=== PATIENT | male | born 1950 | race African-American/Black ===

== ENCOUNTER 2017-10-26 07:52 | Day surgery (SDC) | payer MEDICARE ==
[2017-10-25 14:11] VITALS: BMI 25.8
[2017-10-26] MEDS ORDERED: Lidocaine 1% PF 5 ML VIAL ONE (15:19)
[2017-10-26] MEDS ORDERED: PROPOFOL 200 MG/20 ML VIAL ONE (15:19)
--- NOTE | 2017-10-26 16:46 | OP ---
DATE OF PROCEDURE: 10/26/2017 PROCEDURE PERFORMED: Colonoscopy with polypectomy. PREPROCEDURE DIAGNOSIS: Colorectal cancer screening. POSTOPERATIVE DIAGNOSES: Seven polyps removed from the ascending, transverse, and sigmoid colon rang ing in size from 2-7 mm in size, all sessile to semi-pedunculated, removed by hot snare polypectomy a nd submitted to Pathology from the ascending, transverse, and sigmoid. RECOMMENDATIONS: 1. Await histopathology. 2. Repeat colonoscopy in 3 years. ANESTHESIA: TIVA. PROCEDURE IN DETAIL: After the patient was informed of the risks, benefits, possible complications o f endoscopy including perforation, bleeding, reaction to medication and aspiration, informed consent was obtained. The patient brought to the endoscopy suite where he was sedated in a gradual fashion. Once he was comfortable, a rectal exam was performed. The normal endoscope was advanced in the anal canal, through the colon to the cecum which was identified by the ileocecal valve and appendiceal or ifice. The scope was then slowly removed. The prep was fairly good. We have to irrigate with about 500 mL of sterile water. Polyps were identified in the ascending, transverse, and 2 were found in t he sigmoid colon of 7 total. These were all removed by hot snare polypectomy and submitted to Pathol cecilia. Retroflexed views in the rectum were normal. The scope was then removed. The patient tolerate d the procedure well with no complications.
== END 2017-10-26 10:25 | disposition home or self-care (01) ==
LOC: SDC 07:52
PROVIDERS: ATTEND Internal Medicine Gastroenterology
PROC: 0DBK8ZX Excision of Ascending Colon, Via Natural or Artificial Opening Endoscopic, Diagnostic (ICD-10-PCS; principal; 2017-10-26)
PROC: 0DBL8ZX Excision of Transverse Colon, Via Natural or Artificial Opening Endoscopic, Diagnostic (ICD-10-PCS; 2017-10-26)
PROC: 0DBN8ZX Excision of Sigmoid Colon, Via Natural or Artificial Opening Endoscopic, Diagnostic (ICD-10-PCS; 2017-10-26)
DX: Z12.11 Encounter for screening for malignant neoplasm of colon (principal); D12.2 Benign neoplasm of ascending colon; D12.5 Benign neoplasm of sigmoid colon; K63.5 Polyp of colon; I25.10 Atherosclerotic heart disease of native coronary artery without angina pectoris; J45.909 Unspecified asthma, uncomplicated; E78.00 Pure hypercholesterolemia, unspecified; E11.9 Type 2 diabetes mellitus without complications; I10 Essential (primary) hypertension; J44.9 Chronic obstructive pulmonary disease, unspecified; Z79.82 Long term (current) use of aspirin; Z79.899 Other long term (current) drug therapy
CPT/HCPCS: 36416; 88305; J2001; J2704

== ENCOUNTER 2018-07-16 22:27 | Inpatient (IN) | payer MEDICARE ==
[2018-07-16] MEDS ORDERED: Albuterol Sulfate 2.5 mg/3 ml Neb ONE (22:37)
[2018-07-16] MEDS ORDERED: Albuterol Sulfate 2.5 mg/0.5 ml Neb ONE (22:37)
--- NOTE | 2018-07-16 22:48 | RAD ---
Portable frontal chest radiograph: 07/16/2018 COMPARISON: 03/31/2014 HISTORY: Shortness of breath FINDINGS: Stable midline sternotomy wires. Stable mild increased linear interstitial density. No pneu mothorax or pleural fluid. No lobar consolidation or alveolar edema. IMPRESSION: No acute findings.
[2018-07-16 22:57] LABS: #Basophils 0.1 thou/uL (0.0-0.2); #Eosinphils 1.3 thou/uL (0.0-0.7); #Lymphocytes 2.2 thou/uL (1.20-3.40); #Monocytes 0.7 thou/uL (0.11-0.59); #Neutrophils 6.5 thou/uL (1.40-6.50); %Basophils 0.6 % (0.0-1.0); %Eosinophils 12.3 % (0.0-10.0); %Lymphocytes 20.4 % (21.0-51.0); %Monocytes 6.4 % (0.0-10.0); %Neutrophils 60.3 % (42.0-75.0); Hemoglobin 13.1 g/dL (14.0-18.0); Mean Corpuscular HGB CONC 32.9 g/dL (32.0-36.0); Mean Corpuscular Hemoglobin 27.9 pg (27.0-31.0); Mean Corpuscular Volume 84.8 fL (78.0-98.0); Mean Platelet Volume 8.2 fL (7.4-10.4); Platelet Count 234 thou/uL (130-400); RBC Distribution Width 12.9 % (11.5-14.5); Red Blood Cell (RBC) Count 4.71 mill/uL (4.70-6.10); White Blood Cell (WBC) Count 10.7 thou/uL (4.8-10.8)
[2018-07-16] MEDS ORDERED: cloNIDine 0.1 MG TAB ONE (23:10)
[2018-07-16 23:18] LABS: ALT (SGPT) 19 U/L (8-55); AST (SGOT) 23 U/L (5-34); Albumin 4.5 g/dL (3.4-4.8); Alkaline Phosphatase 109 U/L (40-150); Anion Gap 17 mmol/L (10-20); BUN (Urea Nitrogen) 20 mg/dL (8.4-25.7); Bilirubin, Total 0.3 mg/dL (0.2-1.2); Calc. Creatinine Clearance 0 mL/min (70-130); Calcium 9.4 mg/dL (7.8-10.44); Carbon Dioxide 24 mmol/L (23-31); Chloride 101 mmol/L (98-107); Estimated GFR-MDRD 78; Globulin 3.1 g/dL (2.4-3.5); Glucose 257 mg/dL (80-115); Protein, Total 7.6 g/dL (5.8-8.1); Sodium 138 mmol/L (136-145)
[2018-07-17] MEDS ORDERED: Sodium Chloride 0.65% Nasal 44 ML BOT EA NARE PRN (01:07)
[2018-07-17] MEDS ORDERED: Nitroglycerin 0.4 MG TAB (25 Tab Bottle) SL PRN (01:07)
[2018-07-17] MEDS ORDERED: HYDROcodone/Acetaminophen 5/325 mg Tablet PO PRN (01:07)
[2018-07-17] MEDS ORDERED: Senokot S 8.6-50 MG TAB PO PRN (01:07)
[2018-07-17] MEDS ORDERED: Ondansetron PF 4 MG/2 ML Vial IVP PRN ×2 (01:07)
[2018-07-17] MEDS ORDERED: Bisacodyl 10 MG SUPP PR PRN (01:07)
[2018-07-17] MEDS ORDERED: Diabetic Tussin 200 MG/10 ML UDCUP PO PRN (01:07)
[2018-07-17] MEDS ORDERED: Bisacodyl 5 MG TAB PO PRN (01:07)
[2018-07-17] MEDS ORDERED: hydrALAZINE 20 MG/ML VIAL SLOW IVP PRN (01:07)
[2018-07-17] MEDS ORDERED: cloNIDine 0.1 MG TAB PO PRN (01:07)
[2018-07-17] MEDS ORDERED: Calcium Carbonate 500 MG ChewTAB PO PRN ×2 (01:07)
[2018-07-17] MEDS ORDERED: Benzonatate 100 MG CAP PO PRN (01:07)
[2018-07-17] MEDS ORDERED: Acetaminophen 325 MG TAB PO PRN (01:07)
[2018-07-17 01:28] VITALS: BMI 25.9
[2018-07-17] MEDS ORDERED: traMADol HCl 50 MG TAB PO PRN (02:08)
[2018-07-17] MEDS ORDERED: Dextrose 5% in Water 1,000 ML IV PRN (02:28)
[2018-07-17] MEDS ORDERED: Dextrose 50% Abboject 50 ML SYRINGE SLOW IVP PRN (02:28)
[2018-07-17] MEDS ORDERED: HumaLOG 300 UNITS/3 ML VIAL SC PRN (02:28)
--- NOTE | 2018-07-17 03:41 | HP ---
PRIMARY CARE PHYSICIAN: Clinic. Dr. Andrews Henry CHIEF COMPLAINT: Worsening shortness of breath. HISTORY OF PRESENTING ILLNESS: Mr. Lemus is a pleasant 67-year-old male with past medical history of coronary artery disease, COPD versus asthma, not on home oxygen and history of diabetes and prostate cancer, who presented to the emergency room with above-mentioned complaint. History is mainly obtained by the patient himself, who is having a little hard time giving history because of the BiPAP mask and because of shortness of breath with long conversation. Electronic medical records have been reviewed in detail. Mr. Lemus reports that he has been having shortness of breath for the last 2 or 3 days, but it got worse last night. He suspects that he was exposed to some allergen and started as a runny nose and then his eyes started to water. He started to have more and more shortness of breath despite using his home inhalers and nebulizers. He has been having some nonproductive cough, but no fever, chills, or chest pain. He called the EMS and came to the emergency room. Per the EMS, the patient was having diffuse wheezing and his saturation was 92% on room air. He was given 6 nebulizers, one dose of Solu-Medrol IV 125 mg as well as magnesium and epi en route. The patient was on BiPAP upon presentation to the ER. Upon presentation to our emergency room, he was found to be in respiratory distress with use of accessory muscles. He was hypertensive with a blood pressure of 201/141. He was found to have diffuse wheezing on ER physician's examination. A 12-lead EKG shows sinus tachycardia. He was given clonidine and albuterol nebulizer and was continued on BiPAP and Medicine Team was consulted for admission to [facility]. The patient is currently being admitted to [facility] with presumptive diagnosis of COPD exacerbation. Chest x-ray did not show any evidence of infiltrate, edema, or effusion. PAST MEDICAL HISTORY: 1. History of COPD versus asthma. The patient follows up with Dr. Bernabe. 2. Coronary artery disease, status post stenting. The patient follows up with Dr. Avial. 3. Diabetes mellitus, type 2. 4. Hypertension. 5. Dyslipidemia. 6. History of prostate cancer. 7. Chronic low back pain. PAST SURGICAL HISTORY: 1. CABG in 1999. 2. CABG x4 in 2013. PSYCHIATRIC HISTORY: No anxiety or depression reviewed with the patient. SOCIAL HISTORY: He lives at home with his son. He drinks alcohol socially. No history of smoking or illicit drug abuse. FAMILY HISTORY: Mother had hypertension. Brother from some sort of cancer. No family history of coronary artery disease or sudden cardiac . ALLERGIES: NO KNOWN MEDICATION ALLERGIES. HOME MEDICATIONS: 1. Tramadol q.i.d. p.r.n. 2. Actos 45 mg daily. 3. Omeprazole 20 mg daily. 4. Lisinopril 5 mg daily. 5. Levemir 30 units b.i.d. 6. Gabapentin 300 t.i.d. 7. Budesonide nebs 0.5 b.i.d. 8. Brovana 15 mcg neb b.i.d. 9. Atorvastatin 80 mg at bedtime. 10. Aspirin 81 mg daily. 11. Amlodipine 10 mg p.o. daily. REVIEW OF SYSTEMS: A 14-point review of system is done. It is negative except for those mentioned in the history and physical. CODE STATUS: Full code discussed with the patient. PHYSICAL EXAMINATION: VITAL SIGNS: Most recent vital signs; temperature 98.2, heart rate 110, respirations 23, blood pressure 149/73, and saturating 100% on BiPAP. GENERAL: No acute distress. He is awake, alert, and oriented x3. He gets easily winded with conversation. HEENT: BiPAP mask is on. Head is normocephalic and atraumatic. Pupils are equal and reactive to light and accommodation. Extraocular movements are intact. NECK: Supple without any lymphadenopathy, JVD, or bruit. CHEST: Show diffuse bilateral wheezing without any rhonchi or crackles. He is tachycardic with regular rate and rhythm without any significant murmurs. ABDOMEN: Soft, nontender, and nondistended. Positive bowel sounds. EXTREMITIES: Free of any cyanosis, clubbing, or edema. NEUROLOGIC: Nonfocal. SKIN: Free of any rashes or bruises. Feels warm and dry to touch. PSYCHIATRIC: Normal affect. LABORATORY STUDIES: Lab examination is unremarkable. Serum chemistries unremarkable. Blood sugar 257. Cardiac enzymes within normal limit. BNP 81. DIAGNOSTIC DATA: Chest x-ray by my review shows no evidence of pleural effusion, edema, or infiltrate. 12-lead EKG by my review shows normal sinus rhythm at 128 beats per minute without any acute ST or T-wave changes. IMPRESSION AND PLAN: 1. Acute hypoxic respiratory failure. This is secondary to chronic obstructive pulmonary disease exacerbation. The patient will be continued on BiPAP for now and we will provide symptomatic and supportive care. We will also add IV steroids as well as scheduled and p.r.n. nebulizer along with Dulera and continue BiPAP for now. We will request consultation with Pulmonary Medicine in the morning as well. The patient is oxygenating much better, but he still has diffuse wheezes. We will add the empiric antibiotics for chronic obstructive pulmonary disease exacerbation, namely Augmentin for now. We will also add Spiriva given his history of asthma. 2. Hypertensive urgency. His blood pressure is under much better control for now. We will restart his home medications, off amlodipine and lisinopril. Add p.r.n. antihypertensives and monitor closely. 3. Diabetes mellitus. We will hold the Actos for now because of poor oral intake. We will put him on sliding scale insulin. Continue with his long-acting insulin in the form of Levemir. Accu-Cheks a.c. and at bedtime will be done. 4. History of coronary artery disease, currently stable. We will restart his aspirin, atorvastatin, and lisinopril. Avoid any beta blockers because of chronic obstructive pulmonary disease. 5. Add deep venous thrombosis and gastrointestinal prophylaxis. 6. Add p.r.n. medications. 7. Code status, full code discussed with the patient. DISPOSITION: Mr. Lemus is currently being admitted to the hospital with acute hypoxic respiratory failure due to COPD exacerbation. Estimated length of stay at this time is 2 to 3 midnights. He is currently on BiPAP, admitted to [facility]. Further management will depend upon his clinical course. Job ID: [id number]
[2018-07-17] MEDS: methylPREDNISolone Sod Succ 40 MG VIAL IVP SCH ×3 (05:09→17:35)
[2018-07-17 06:05] LABS: Anion Gap 16 mmol/L (10-20); BUN (Urea Nitrogen) 22 mg/dL (8.4-25.7); Calc. Creatinine Clearance 69 mL/min (70-130); Carbon Dioxide 24 mmol/L (23-31); Chloride 101 mmol/L (98-107); Estimated GFR-MDRD 75; Glucose 359 mg/dL (80-115); Potassium 4.8 mmol/L (3.5-5.1); Sodium 136 mmol/L (136-145)
[2018-07-17] MEDS ORDERED: Mometasone/Formoterol 120 PUFF INHALER INH SCH (06:30)
[2018-07-17] MEDS: HumaLOG 300 UNITS/3 ML VIAL SC PRN ×3 (06:33→17:35)
[2018-07-17] MEDS ORDERED: Spiriva 18 MCG CAP (Box of 5 Caps) INH SCH (07:00)
[2018-07-17] MEDS ORDERED: Lisinopril 5 MG TAB PO SCH (09:00)
[2018-07-17] MEDS ORDERED: Non-Formulary Item 1 EACH (Levemir Flexpen [Levemir Flexpen] 30 UNIT) SC SCH (09:00)
[2018-07-17] MEDS: Amoxicillin/Potassium Clav 875 MG TAB PO SCH ×2 (09:20→21:14)
[2018-07-17] MEDS: Famotidine 20 MG TAB PO SCH ×2 (09:21→21:14)
[2018-07-17] MEDS: Gabapentin 300 MG CAP PO SCH ×3 (09:21→21:14)
[2018-07-17] MEDS: Insulin Glargine 30 UNITS in Pre-Filled Syringe 1 EACH SC SCH ×2 (09:21→21:14)
[2018-07-17] MEDS: Amlodipine 10 MG TAB PO SCH (09:21)
[2018-07-17] MEDS: Aspirin 81 mg Enteric Coated Tablet PO SCH (09:21)
[2018-07-17] MEDS: Enoxaparin Sodium 40 MG/0.4 ML SYRINGE SC SCH (09:22)
--- NOTE | 2018-07-17 11:35 | CON ---
DATE OF CONSULTATION: 07/17/2018 HISTORY OF PRESENT ILLNESS: Shoaib Lemus is a 67-year-old gentleman, who sees Dr. Bernabe for COPD, though he has never smoked, he used to work in a power plant, who states over the last several days, his eyes were itching, running, suddenly became short of breath, unresponsive to his usual medication. He is not seeing Dr. Bernabe for a period of time. Prior to his particular illness with wheezing, he said he was able to function quite well, walking a fair distance. He was given Solu-Medrol 125 neb treatments, magnesium, epinephrine. Apparently, he was wheezing upon arrival. He was eventually placed on noninvasive ventilation. He is doing much better. PAST MEDICAL HISTORY: 1. Chronic asthma associated with COPD. 2. Hypertension. 3. Coronary artery disease. 4. History of prostate cancer. 5. History of diabetes. 6. Hyperlipidemia. 7. Hypertension. PAST SURGICAL HISTORY: Including stent, bypass surgery. ALCOHOL: None. TOBACCO: Never. SOCIAL HISTORY: He worked for a power plant. HOME MEDICINES: Has included; 1. Tramadol. 2. Actos 45. 3. Omeprazole 20. 4. Lisinopril 5. 5. Levemir 30 b.i.d. 6. Gabapentin 300 three times a day. 7. He has Pulmicort neb solution. 8. Brovana 15 twice a day. ALLERGIES: NONE. REVIEW OF SYSTEMS: Ten-point negative. PHYSICAL EXAMINATION: VITAL SIGNS: Blood pressure 112/86, temperature 97, sats 100% on 2 L, respiratory rate 20. GENERAL: Awake, alert, responsive. CHEST: Decreased breath sounds. No wheezing. CARDIAC: Normal S1 and S2. No gallops. ABDOMEN: Soft without any masses. LABORATORY DATA: His lab is pertinent for glucose of 321. White count is unremarkable. DIAGNOSTIC DATA: X-ray was normal. IMPRESSION AND PLAN: 1. Chronic asthma. 2. Chronic obstructive pulmonary disease exacerbation. 3. Coronary artery disease. 4. Diabetes. 5. Prostate cancer. Appears to have improved substantially. Continue steroids, neb treatment. We will notify Dr. Bernabe. Consultation note, 70 minutes, 50% direct patient care. Job ID: [id number]
[2018-07-17] MEDS: Mometasone/Formoterol 120 PUFF INHALER INH SCH (19:34)
[2018-07-17] MEDS: Atorvastatin Calcium 40 MG TAB PO SCH (21:14)
[2018-07-18] MEDS: methylPREDNISolone Sod Succ 40 MG VIAL IVP SCH ×4 (00:12→16:58)
[2018-07-18] MEDS: HumaLOG 300 UNITS/3 ML VIAL SC PRN ×2 (05:59→11:27)
[2018-07-18] MEDS: Mometasone/Formoterol 120 PUFF INHALER INH SCH ×2 (07:56→18:18)
[2018-07-18] MEDS: Amlodipine 10 MG TAB PO SCH (10:09)
[2018-07-18] MEDS: Amoxicillin/Potassium Clav 875 MG TAB PO SCH ×2 (10:09→20:40)
[2018-07-18] MEDS: Enoxaparin Sodium 40 MG/0.4 ML SYRINGE SC SCH (10:10)
[2018-07-18] MEDS: Aspirin 81 mg Enteric Coated Tablet PO SCH (10:10)
[2018-07-18] MEDS: Gabapentin 300 MG CAP PO SCH ×3 (10:10→20:40)
[2018-07-18] MEDS: Famotidine 20 MG TAB PO SCH ×2 (10:10→20:40)
--- NOTE | 2018-07-18 10:24 | PRG ---
DATE OF SERVICE: 07/18/2018 SUBJECTIVE: The patient is seen and examined at bedside. He is doing significantly better. His appetite is good. He moves his bowels daily. His shortness of breath improved. OBJECTIVE: VITAL SIGNS: Blood pressure is 163/113, temperature is 96.2, pulse is 86, respiratory rate is 16, O2 saturation is 97% on 2 L by nasal cannula. HEENT: His head is atraumatic and normocephalic. Eyes are PERRLA. Sclerae are nonicteric. Oral mucosa is moist. NECK: Supple. LUNGS: Wheezing and rales bilaterally. At the back of both lungs, sounds much better. HEART: S1, S2 normal. No S3. No S4. ABDOMEN: Soft, nontender, nondistended. EXTREMITIES: No clubbing, cyanosis, or edema. NEUROLOGICAL: He is alert and oriented x4. There is no any motor or sensory deficit present. Cranial nerves are intact. LABORATORY DATA: Glycemia is ranging from 226 to 329. IMPRESSION: 1. Acute exacerbation of chronic obstructive pulmonary disease. 2. Uncontrolled diabetes mellitus, mostly secondary to IV drug and steroid use. 3. Hypertensive urgency. This is still an issue. We will try to adjust some medications to get the blood pressure under control. 4. History of coronary artery disease, chronic, stable on aspirin, atorvastatin, and lisinopril. PLAN: Continue his Augmentin. Continue his IV steroids. Continue DuoNeb's. Intensify his blood pressure control. Job ID: [id number]
[2018-07-18] MEDS: Lisinopril 20 MG TAB PO SCH (10:25)
[2018-07-18] MEDS: Pioglitazone HCl 45 MG TAB PO SCH (11:26)
[2018-07-18] MEDS: Insulin Glargine 40 UNITS in Pre-Filled Syringe 1 EACH SC SCH (11:26)
--- NOTE | 2018-07-18 14:32 | PRG ---
DATE OF SERVICE: 07/18/2018 SUBJECTIVE: Shoaib Lemus is in no distress. He said he had an appointment coming up to see me here in the near future. He has not been seen in the office in a while. OBJECTIVE: VITAL SIGNS: Heart rate is 91, blood pressure 151/91, respiratory rate is 23, oximetry is 100%. He says he is feeling much better than when he was admitted. LUNGS: Still remarkable for diffuse mild wheezes. HEART: Regular rhythm. S1 and S2 are normal. ABDOMEN: Soft and nontender. EXTREMITIES: Without asymmetry or edema. IMPRESSION: 1. Chronic obstructive pulmonary disease exacerbation, slowly improving. 2. Diabetes. 3. Hypertension. 4. History of coronary artery disease. PLAN: Continue antibiotics, steroids, and nebulized treatments. We will continue to follow the other physicians caring for him. Job ID: [id number] MTDD
[2018-07-18] MEDS: Budesonide 0.5 MG/2 ML NEB NEB SCH (18:18)
[2018-07-18] MEDS: Atorvastatin Calcium 40 MG TAB PO SCH (20:40)
[2018-07-18] MEDS ORDERED: Insulin Glargine 40 UNITS in Pre-Filled Syringe 1 EACH SC SCH (21:00)
[2018-07-19] MEDS: methylPREDNISolone Sod Succ 40 MG VIAL IVP SCH ×2 (00:07→06:12)
[2018-07-19] MEDS: Budesonide 0.5 MG/2 ML NEB NEB SCH (07:27)
[2018-07-19] MEDS: Mometasone/Formoterol 120 PUFF INHALER INH SCH (07:28)
[2018-07-19] MEDS: Insulin Glargine 40 UNITS in Pre-Filled Syringe 1 EACH SC SCH (08:22)
[2018-07-19] MEDS: Aspirin 81 mg Enteric Coated Tablet PO SCH (08:23)
[2018-07-19] MEDS: Amlodipine 10 MG TAB PO SCH (08:23)
[2018-07-19] MEDS: Pioglitazone HCl 45 MG TAB PO SCH (08:23)
[2018-07-19] MEDS: Lisinopril 20 MG TAB PO SCH (08:23)
[2018-07-19] MEDS: Amoxicillin/Potassium Clav 875 MG TAB PO SCH (08:23)
[2018-07-19] MEDS: Famotidine 20 MG TAB PO SCH (08:24)
[2018-07-19] MEDS: Enoxaparin Sodium 40 MG/0.4 ML SYRINGE SC SCH (08:24)
[2018-07-19] MEDS: Gabapentin 300 MG CAP PO SCH (08:24)
[2018-07-19 08:27] VITALS: BP 112/86
[2018-07-19 11:19] VITALS: TEMP 97.5
--- NOTE | 2018-07-19 13:45 | PRG ---
DATE OF SERVICE: 07/19/2018 SUBJECTIVE: Shoaib Lemus says he feels close to his baseline. He is in no distress. He wants to go home. OBJECTIVE: VITAL SIGNS: He is afebrile. Blood pressure 138/83, heart rate 78, and respiratory rate 18. LUNGS: Clear. HEART: Regular rhythm. ABDOMEN: Soft and nontender. EXTREMITIES: Without edema. LABORATORY DATA: White count has not been repeated since admission. Glucoses have been in the 125 to 293 range. IMPRESSION: 1. Chronic obstructive pulmonary disease exacerbation, clinically improving. 2. Diabetes. 3. Hypertension. 4. History of coronary artery disease. He will follow up with me in 2 weeks. He will be discharged on a 2-week steroid taper, antibiotic (Augmentin) plus ipratropium and albuterol to use 4 times a day and his nebulizer. He is chronically on Brovana and budesonide, but after exacerbation, we probably should continue to go with breathing treatments 4 times a day and the steroid taper as well as continuing the antibiotics. Job ID: [id number]
--- NOTE | 2018-07-19 20:21 | DIS ---
DATE OF ADMISSION: 07/17/2018 DATE OF DISCHARGE: 07/19/2018 FINAL DIAGNOSES: 1. Acute exacerbation of chronic obstructive pulmonary disease. 2. Uncontrolled diabetes mellitus. 3. Hypertensive urgency. 4. History of coronary artery disease. CONSULTANTS: 1. Dr. Bernabe, Pulmonary Service. 2. Dr. Lynch, Pulmonary Service. HOSPITAL COURSE: The patient is a 67-year-old male, who presented with exacerbation of chronic obstructive pulmonary disease. He noticed increased worsening of shortness of breath going on for approximately 3 days. It started as a runny nose and his eyes started watering, productive cough. No fever. No chills. No chest pain. He was taken to the emergency room by EMS and was found to have pulse oximetry around 92% on room air. He was started on IV Solu-Medrol and nebulizers and while in the ER, he was placed on BiPAP. His blood pressure was up to 200 systolic and 140 diastolic. EKG showed sinus tachycardia. He was given multiple nebulized DuoNeb and got admitted to [facility]. Chest x-ray did not show any evidence of infiltrate or edema or effusion. At the time of admission, his labs were unremarkable. Blood sugar was 257 and cardiac enzymes were within normal limits. BNP was 81. He was started on Augmentin with long-acting insulin and short-acting according to sliding scale and Accu-Cheks, which were done before meals and at bedtime. He was seen by Dr. Lynch for pulmonary consultation. He recommended to continue the current regimen. He improved very quickly. His pulmonary status is improved to the point that he can be discharged home safely. His temperature was 97.5, blood pressure 138/83, heart rate 78, respirations 20, and O2 saturation is 98% on room air. His lungs does not present with any wheezing today. Heart, S1 and S2 normal. Abdomen is soft and nontender. Extremities; no clubbing, cyanosis, or edema. He is discharged home with recommendation to stay on 2000 calories ADA diet. Activities as tolerated. MEDICATIONS: Medications at the time of discharge: 1. He was switched to oral prednisone and he will take 40 mg daily x4 days, then 20 mg daily x8 days, then 10 mg daily x8 days. 2. He will have prescription for DuoNeb for one month. 3. He will also get prescription for Augmentin 875 twice a day for the next 10 days. 4. He will continue on his aspirin 81 mg once a day. 5. Amlodipine 10 mg once a day. 6. Atorvastatin 80 mg once a day. 7. Budesonide . 8. Gabapentin 300 mg 3 times a day. 9. He will continue his regular dose of insulin glargine, which I believe 30 units twice a day. 10. He will continue also lisinopril 5 mg once a day. 11. Omeprazole 20 mg once a day. 12. Actos 45 mg once a day. 13. Tramadol 50 mg p.o. q.i.d. p.r.n. as needed. FOLLOWUP: He will follow up with his primary doctor in [address] Bernabe in 1 month. TIME SPENT: Discharge time is less than 30 minutes. Job ID: [id number]
== END 2018-07-19 13:28 | disposition home or self-care (01) | DRG 189 ==
LOC: ERS 22:27 → IMCU/EMU 07-17 01:16
PROVIDERS: ADMIT Internal Medicine; ATTEND Internal Medicine
PROC: 5A09457 Assistance with Respiratory Ventilation, 24-96 Consecutive Hours, Continuous Positive Airway Pressure (ICD-10-PCS; principal; 2018-07-17)
DX: J96.01 Acute respiratory failure with hypoxia (principal); J44.1 Chronic obstructive pulmonary disease with (acute) exacerbation; I25.10 Atherosclerotic heart disease of native coronary artery without angina pectoris; I10 Essential (primary) hypertension; I16.0 Hypertensive urgency; E78.5 Hyperlipidemia, unspecified; E11.65 Type 2 diabetes mellitus with hyperglycemia; G89.29 Other chronic pain; M54.9 Dorsalgia, unspecified; Z95.1 Presence of aortocoronary bypass graft; Z79.899 Other long term (current) drug therapy; Z79.82 Long term (current) use of aspirin; Z79.4 Long term (current) use of insulin; Z79.51 Long term (current) use of inhaled steroids; Z85.46 Personal history of malignant neoplasm of prostate
CPT/HCPCS: 36415; 36416; 71045; 80048; 80053; 83880; 84484; 85025; 93005; 94644; 94660; 94664; J1650; J1825; J2920; J7611; J7620; J7626

== ENCOUNTER 2018-09-16 09:31 | Outpatient (CLI) | payer MEDICARE ==
--- NOTE | 2018-09-16 09:47 | RAD ---
EXAM: Chest 2 views: HISTORY: Dyspnea COMPARISON: None. FINDINGS: There is a normal-sized cardiomediastinal silhouette. The patient is status post sternotomy. There is no evidence of consolidation, mass, or pleural effusion. The bones are unremarkable. IMPRESSION: No evidence of acute cardiopulmonary disease
== END 2018-09-16 09:32 | disposition home or self-care (01) ==
LOC: RAD 09:31
PROVIDERS: ATTEND Internal Medicine Critical Care Medicine
DX: R06.00 Dyspnea, unspecified (principal)
CPT/HCPCS: 71046

== ENCOUNTER 2023-03-05 11:03 | Inpatient (IN) | payer MEDICARE ==
[2023-03-05] MEDS ORDERED: Dexamethasone 10 MG/ML VIAL ONE (11:30)
[2023-03-05] MEDS ORDERED: Magnesium 2 GM/50 ML BAG (IN WATER) ONE (11:30)
[2023-03-05] MEDS ORDERED: Ipratropium/Albuterol 3 ML NEB ONE ×2 (11:31→11:57)
[2023-03-05] MEDS ORDERED: Albuterol 2.5 MG/0.5 ML NEB ONE ×2 (11:41→11:58)
[2023-03-05 11:43] LABS: #Monocytes 0.6 thou/uL (0.11-0.59); #Neutrophils 5.7 thou/uL (1.40-6.50); %Lymphocytes 10.5 % (21.0-51.0); %Monocytes 8.5 % (0.0-10.0); %Neutrophils 80.7 % (42.0-75.0); Hematocrit 39.4 % (42.0-52.0); Hemoglobin 12.6 g/dL (14.0-18.0); Mean Corpuscular Hemoglobin 26.8 pg (27.0-31.0); Mean Corpuscular Volume 83.8 fl (78.0-98.0); Platelet Count 245 10x3/uL (130-400); RBC Distribution Width 15.6 % (11.5-14.5); White Blood Cell (WBC) Count 7.1 10x3/uL (4.8-10.8)
[2023-03-05 11:49] LABS: CO2 Tension 30.9 mmHg (35.0-45.0); pH, Arterial 7.436 (7.35-7.45)
[2023-03-05 11:50] LABS: Actual Bicarbonate (HCO3a) 20.3 mEq/L (22-28); Base Excess (BEa) -2.8 mEq/L (-2.0 to +3.0); Calcium, Ionized (arterial) 1.21 mmol/L (1.12-1.30); Carboxyhemoglobin (COHb) 0.4 gm% (0.0-3.0); Hematocrit-ABG 39 % (42.0-52.0); Hemoglobin (Hb) 13.4 g/dL (14.0-18.0); O2 Tension (PaO2), arterial 59.3 mmHg (> 70.0); Potassium - ABG Lab 4.66 mmol/L (3.70-5.30)
[2023-03-05 11:51] LABS: Analyzer IN Cardio ER; Puncture Site LRA
[2023-03-05 12:02] LABS: ALT (SGPT) 32 U/L (8-55); AST (SGOT) 23 U/L (5-34); Albumin 4.3 g/dL (3.4-4.8); Alkaline Phosphatase 89 U/L (40-110); Anion Gap 17 mmol/L (10-20); BUN (Urea Nitrogen) 15 mg/dL (8.4-25.7); Bilirubin, Total 0.8 mg/dL (0.2-1.2); Calc. Creatinine Clearance 0 mL/min (70-130); Calcium 9.8 mg/dL (7.8-10.44); Carbon Dioxide 22 mmol/L (23-31); Chloride 103 mmol/L (98-107); Estimated GFR 88; Globulin 3.3 g/dL (2.4-3.5); Glucose 124 mg/dL (83-110); Lipase 15 U/L (8-78); Potassium 4.7 mmol/L (3.5-5.1); Protein, Total 7.6 g/dL (5.8-8.1); Sodium 137 mmol/L (136-145)
[2023-03-05 12:05] LABS: Troponin I Less than 0.010 ng/mL (< 0.028)
[2023-03-05 12:33] LABS: SARS-CoV-2 NAA Rapid Test Not Detected (NotDetected)
[2023-03-05] MEDS ORDERED: Acetaminophen 325 MG TAB PO PRN (12:37)
[2023-03-05] MEDS ORDERED: Ondansetron PF 4 MG/2 ML Vial IVP PRN (12:37)
[2023-03-05] MEDS ORDERED: Ondansetron ODT 4 MG TAB PO PRN (12:37)
[2023-03-05] MEDS ORDERED: LevoFLOXacin 750 mg/D5W 150 ml Premix Bag ONE (12:57)
[2023-03-05] MEDS ORDERED: Dextrose 50% Abboject 50 ML SYRINGE SLOW IVP PRN (13:14)
[2023-03-05] MEDS ORDERED: Dextrose 5% in Water 1,000 ML IV PRN (13:14)
[2023-03-05] MEDS ORDERED: Glucagon 1 MG/ML KIT IM PRN (13:14)
[2023-03-05 15:34] LABS: Bacteria/HPF None Seen HPF (None Seen); Bilirubin Negative (Negative); Blood, Urine Negative (Negative); CAUTI Indications for Culture Dysuria,urgency,freq; Clarity Clear (Clear); Glucose, Urine (Dipstick) Greater than 1000 mg/dL (Negative); Ketone, Urine 40 mg/dL (Negative); Leukocyte Negative Leu/uL (Negative); Nitrite Negative (Negative); Protein, Urine (Dipstick) 20 mg/dL (Neg-Trace); RBC/HPF None Seen HPF (0-3); Specific Gravity, Urine 1.028 (1.002-1.036); Squamous Epithelial None Seen HPF (0-3); Urobilinogen Normal mg/dL (Less than 2); WBC/HPF 0-3 HPF (0-3)
[2023-03-05 15:38] LABS: Urine Culture Reflex No No
[2023-03-05] MEDS: methylPREDNISolone Sod Succ 40 MG VIAL IVP SCH ×2 (17:11→22:57)
[2023-03-05] MEDS: HumaLOG 300 UNITS/3 ML VIAL SC PRN ×2 (17:11→22:32)
[2023-03-05] MEDS: Ipratropium/Albuterol 3 ML NEB NEB SCH ×3 (19:19→22:48)
[2023-03-06] MEDS: Ipratropium/Albuterol 3 ML NEB NEB SCH ×6 (02:25→22:31)
[2023-03-06] MEDS: methylPREDNISolone Sod Succ 40 MG VIAL IVP SCH ×4 (05:43→23:20)
[2023-03-06] MEDS: HumaLOG 300 UNITS/3 ML VIAL SC PRN ×3 (05:43→23:21)
[2023-03-06 08:34] LABS: #Monocytes 0.5 thou/uL (0.11-0.59); %Basophils 0.2 % (0.0-1.0); %Lymphocytes 5.5 % (21.0-51.0); %Monocytes 3.5 % (0.0-10.0); %Neutrophils 90.6 % (42.0-75.0); Hematocrit 35.5 % (42.0-52.0); Hemoglobin 11.7 g/dL (14.0-18.0); Mean Corpuscular Hemoglobin 26.9 pg (27.0-31.0); Mean Corpuscular Volume 81.6 fl (78.0-98.0); Platelet Count 227 10x3/uL (130-400); RBC Distribution Width 15.6 % (11.5-14.5); Red Blood Cell (RBC) Count 4.35 mill/uL (4.70-6.10); White Blood Cell (WBC) Count 13.3 10x3/uL (4.8-10.8)
[2023-03-06 08:56] LABS: Anion Gap 14 mmol/L (10-20); BUN (Urea Nitrogen) 32 mg/dL (8.4-25.7); Calc. Creatinine Clearance 58 mL/min (70-130); Carbon Dioxide 23 mmol/L (23-31); Chloride 105 mmol/L (98-107); Estimated GFR 77; Glucose 182 mg/dL (83-110); Potassium 4.4 mmol/L (3.5-5.1); Sodium 138 mmol/L (136-145)
[2023-03-06] MEDS ORDERED: LevoFLOXacin 750 mg/D5W 750 MG in Premix 1 BAG IVPB SCH (13:00)
[2023-03-06] MEDS: Gabapentin 300 MG CAP PO SCH ×2 (15:58→23:25)
[2023-03-06] MEDS ORDERED: Atorvastatin Calcium 40 MG TAB PO SCH (21:00)
[2023-03-06 22:39] VITALS: BMI 20.7
[2023-03-07] MEDS: Ipratropium/Albuterol 3 ML NEB NEB SCH ×5 (02:51→13:32)
[2023-03-07] MEDS: HumaLOG 300 UNITS/3 ML VIAL SC PRN ×2 (05:45→11:32)
[2023-03-07] MEDS: methylPREDNISolone Sod Succ 40 MG VIAL IVP SCH (05:51)
[2023-03-07 07:33] VITALS: BP 125/68; TEMP 97.9
[2023-03-07 07:33] LABS: #Monocytes 0.3 thou/uL (0.11-0.59); #Neutrophils 15.1 thou/uL (1.40-6.50); %Basophils 0.1 % (0.0-1.0); %Lymphocytes 4.7 % (21.0-51.0); %Neutrophils 92.9 % (42.0-75.0); Hematocrit 35.2 % (42.0-52.0); Hemoglobin 11.7 g/dL (14.0-18.0); Mean Corpuscular HGB CONC 33.2 g/dL (32.0-36.0); Mean Corpuscular Hemoglobin 27.3 pg (27.0-31.0); Mean Corpuscular Volume 82.1 fl (78.0-98.0); Mean Platelet Volume 10.2 fL (7.4-10.4); Platelet Count 251 10x3/uL (130-400); RBC Distribution Width 15.5 % (11.5-14.5); Red Blood Cell (RBC) Count 4.29 mill/uL (4.70-6.10); White Blood Cell (WBC) Count 16.3 10x3/uL (4.8-10.8)
[2023-03-07 07:58] LABS: Anion Gap 14 mmol/L (10-20); BUN (Urea Nitrogen) 40 mg/dL (8.4-25.7); Calc. Creatinine Clearance 65 mL/min (70-130); Calcium 8.7 mg/dL (7.8-10.44); Carbon Dioxide 22 mmol/L (23-31); Chloride 105 mmol/L (98-107); Estimated GFR 87; Glucose 210 mg/dL (83-110); Potassium 4.1 mmol/L (3.5-5.1); Sodium 137 mmol/L (136-145)
[2023-03-07] MEDS: Gabapentin 300 MG CAP PO SCH (08:36)
[2023-03-07] MEDS ORDERED: Aspirin 81 mg Enteric Coated Tablet PO SCH (09:00)
[2023-03-07] MEDS ORDERED: Amlodipine 10 MG TAB PO SCH (09:00)
[2023-03-08] MEDS ORDERED: FLU VACC QS2023(65UP)/MF59C/PF 60 MCG/0.5 ML SYRINGE IM ONE (09:00)
== END 2023-03-07 13:39 | disposition home or self-care (01) | DRG 192 ==
LOC: ERS 11:03 → MSONC 12:37 → OBSVTOIN 12:37
PROVIDERS: ADMIT Internal Medicine; ATTEND Internal Medicine
PROC: 4A033R1 Measurement of Arterial Saturation, Peripheral, Percutaneous Approach (ICD-10-PCS; principal; 2023-03-05)
DX: J44.1 Chronic obstructive pulmonary disease with (acute) exacerbation (principal); E11.9 Type 2 diabetes mellitus without complications; I10 Essential (primary) hypertension; E78.5 Hyperlipidemia, unspecified; R06.03 Acute respiratory distress; C61 Malignant neoplasm of prostate; I25.10 Atherosclerotic heart disease of native coronary artery without angina pectoris; Z95.1 Presence of aortocoronary bypass graft; Z79.899 Other long term (current) drug therapy; Z79.82 Long term (current) use of aspirin; Z79.51 Long term (current) use of inhaled steroids; Z11.52 Encounter for screening for COVID-19
CPT/HCPCS: 36415; 36416; 36600; 71045; 80048; 80053; 81001; 82805; 83605; 83690; 83880; 84484; 85025; 87040; 87077; 87086; 93005; 94640; 96365; 96366; 96367; 96375; J1100; J1815; J1956; J2920; J3475; J7611; J7620